=== PATIENT | male | born 1960 | race Caucasian/White ===

== ENCOUNTER 2018-11-19 07:41 | Emergency (ER) | payer OTHER ==
[~2018-11-19] VITALS: Ht 172.7 cm; Wt 63.5 kg
[~2018-11-19 07:41] MED LIST: ALBIPROI; ALBIPROI INH; ALBU3IS; ALBU3IS INH; ALBU90OI; ALBU90OI INH; ALBU90OI6 INH; ALBU90OI61 INH; AZIT500 PO; BUDE.5; CARV6.25 PO; CELE200 PO; CLOP75 PO; CLOT10; CLOT1TC TOP; CYCL10 PO; Cefdinir300 MG; DELTASONE20 MG PO; DOXY100 PO; FLUSAL1005; FLUSAL2505; FLUSAL2505 IH; FLUSAL5005 IH; FLUSAL5005 INH; FLUTICASONE-SA1 EAC5 INH; GUAI600T33 PO; HYDACE10B; HYDACE5 PO; LEVA.63IS; LEVFLO250 PO; LEVFLO500 PO; LEVO750 PO; LORA1 PO; METPRE4DP PO; MONT10T; MONT10T PO; NORT25 PO; Norco 10-325 T1 EACH PO; OMEP20ER PO; OTHER MEDICATIONS; OXYACE5T PO; PANT40 PO; PRAHYD1AE TOP; PRED10 PO; PRED20 PO; PROC10 PO; Prednisone20 MG PO; ROFL500T PO; RXCLIN PO; RXLORA1 PO; SULTRIDS PO; TIOT18; TIOT18 IH; TIOT18 PO; TRAZ50 PO; Ventolin Soln3 ML INH; ZOHYDRO ER30 MG PO; ZOHYDRO ER50 M1; ZOHYDRO ER50 M1 PO; ZOLM5; ZOLP10; ZOLP10 PO; Zofran Odt4 MG SL; [UNRECOGNIZED DRUG - OTHER] PO
== END 2018-11-19 08:44 | disposition home or self-care (01) ==
LOC: ER 07:41
DX: Z48.00 Encounter for change or removal of nonsurgical wound dressing (principal); G43.909 Migraine, unspecified, not intractable, without status migrainosus; K21.9 Gastro-esophageal reflux disease without esophagitis; J44.9 Chronic obstructive pulmonary disease, unspecified; Z87.891 Personal history of nicotine dependence
CPT/HCPCS: 99282

== ENCOUNTER 2019-06-13 11:42 | Day surgery (SDC) | payer OTHER ==
[~2019-06-13] VITALS: Ht 172.7 cm; Wt 85.1 kg
--- NOTE | 2019-06-13 13:32 | NUR ---
06/13/19 1332 [facility] NOTIFIED DR. ISABEL AND DR. ENGLAND THAT PATIENT STOPPED TAKING PLAVIX TWO WEEKS AGO. NO INTERVENTIONS AT THIS TIME. THIS RN DIRECTED PATIENT IN POST OP TEACHING, AT BEDSIDE, CALL LIGHT WITHIN REACH. DENIES NEEDS.
--- NOTE | 2019-06-13 18:48 | NUR ---
06/13/191847 Milagros Dean WENT OUT OF ROOM TO GET PT. SOME PAIN MEDICATION & FAMILY VERBALIZED THAT PT. WAS HAVING A SEIZURE. PT. BODY SHAKING, EYES CLOSED, EYES WATERING. CALLED PT.'S NAME & PT. LOOKED AT [facility] & THEN PT. C/O SOB. PT. HAS HIS O2 INTACT @2L/NC. [facility]DLB ENC. PT. TO COUGH & THEN HE FELT BETTER, NOT SOB. DR. PANIAGUA NOTIFIED. ALSO ENC. SLOW DEEP BREATHS. DR. PANIAGUA TALKING WITH & PT. DR. PANIAGUA ENC. PT. TO TAKE HIS HOME MEDS. PT. ALSO TOOK HIS INHALERS. VERBALIZES PT. HAS SEIZURE AT HOME & IS USUALLY AFTER HE EATS SOMETHING. PER PT.'S THEY ARE WAITING FOR A IN [place] TO FIND OUT ABOUT HIS SEIZURES.
--- NOTE | 2019-06-13 19:17 | NUR ---
06/13/191916 Milagros Dean 1747 PT. VERBALIZES NAUSEA GONE. 1753 PT. TAKEN TO SD. PT. VERBALIZES BEING THIRSTY. INSTRUCTED PT. THAT WE WOULD TAKE HIM OVER TO [place] & HE COULD HAVE SOMETHING TO DRINK.
== END 2019-06-13 19:23 | disposition home or self-care (01) ==
LOC: ORSCSDS 11:42
PROVIDERS: Podiatrist
PROC: 0STQ0ZZ Resection of Left Toe Phalangeal Joint, Open Approach (ICD-10-PCS; principal; 2019-06-13 13:30)
PROC: 0JBR0ZZ Excision of Left Foot Subcutaneous Tissue and Fascia, Open Approach (ICD-10-PCS; principal; 2019-06-13 13:30)
PROC: 0SGQ04Z Fusion of Left Toe Phalangeal Joint with Internal Fixation Device, Open Approach (ICD-10-PCS; principal; 2019-06-13 13:30)
DX: M71.372 Other bursal cyst, left ankle and foot (principal); M20.42 Other hammer toe(s) (acquired), left foot; M15.9 Polyosteoarthritis, unspecified; I10 Essential (primary) hypertension; Z87.891 Personal history of nicotine dependence; R73.03 Prediabetes
CPT/HCPCS: 82947; 88304; 88305; 88311; J0690; J2001; J2250; J2405; J3010; J7120

== ENCOUNTER 2019-12-12 13:42 | Day surgery (SDC) | payer OTHER ==
[~2019-12-12] VITALS: Ht 170.2 cm; Wt 83.3 kg
[~2019-12-12 13:42] MED LIST changes: +ALBU2.5V5 INH; +FLUT1DIS8 INH; +TIOT18 INH
--- NOTE | 2019-12-12 16:04 | NUR ---
12/12/19 1604 Sabina Miller PATIENT C/O PAIM 02/16 HOWEVER, PATIENT IS SITTING IN RECLINER, APPEARS COMFORTABLE, IS TALKING NONSTOP AND EATING COOKIES. WILL MEDICATED PER MD ORDER
== END 2019-12-12 16:31 | disposition home or self-care (01) ==
LOC: ORSCSDS 13:42
PROVIDERS: Podiatrist
PROC: 0Y6S0Z0 Detachment at Left 2nd Toe, Complete, Open Approach (ICD-10-PCS; principal; 2019-12-12 15:00)
DX: M24.576 Contracture, unspecified foot (principal); M20.42 Other hammer toe(s) (acquired), left foot; E78.5 Hyperlipidemia, unspecified; J44.9 Chronic obstructive pulmonary disease, unspecified; Z99.81 Dependence on supplemental oxygen; I25.2 Old myocardial infarction; G40.909 Epilepsy, unspecified, not intractable, without status epilepticus; Z79.899 Other long term (current) drug therapy
CPT/HCPCS: J0690; J1100; J2250; J2405; J2704; J3010; J7120

== ENCOUNTER → 2021-01-03 | Outpatient (CLI) | payer OTHER ==
[2021-01-18 14:05] LABS: Stool Occult Bld Immuno 1 Negative (NEGATIVE)
== END | disposition home or self-care (01) ==
LOC: LAB SHORT 11:25 → LAB FUT 12-24 14:40
PROVIDERS: Physician Assistant
DX: Z12.11 Encounter for screening for malignant neoplasm of colon (principal)
CPT/HCPCS: 82274

== ENCOUNTER → 2022-05-17 | Outpatient (CLI) | payer OTHER ==
[2022-05-18 14:39] LABS: Stool Occult Bld Immuno 1 Negative (NEGATIVE)
== END | disposition home or self-care (01) ==
LOC: LAB SHORT 12:00 → LAB 12:00
PROVIDERS: Physician Assistant
DX: Z12.11 Encounter for screening for malignant neoplasm of colon (principal)
CPT/HCPCS: G0328

== ENCOUNTER 2024-07-11 05:35 | Day surgery (SDC) | payer OTHER ==
[2024-07-11] VITALS (11 sets, daily range): BP systolic 126–140; BP diastolic 86–106
[~2024-07-11] VITALS: Ht 172.7 cm; Wt 63.0 kg
[~2024-07-11 05:35] MED LIST changes: +ATOR10 PO; +Flonase 0.05% N16 GM; +LISI5 PO; +NYSTATIN100000 U10 MT; +TRELEGY ELLIPT1 EACH INH
[2024-07-11] MEDS ORDERED: CeFAZolin Sodium 2,000 MG in NS 100 ML IV SCH (06:15)
[2024-07-11] MEDS ORDERED: Lactated Ringer's 1,000 ML IV SCH (06:15)
[2024-07-11] MEDS ORDERED: Bupivacaine 0.5% HCl 5 MG/ML 30MLVIAL ONE (06:55)
[2024-07-11] MEDS ORDERED: CeFAZolin Sodium 2,000 MG VIAL ONE (06:58)
[2024-07-11] MEDS ORDERED: FentaNYL Citrate 50 MCG/ML 2 ML Injection ONE (07:28)
[2024-07-11] MEDS ORDERED: Etomidate 2MG / ML 10ML Vial ONE (07:30)
--- NOTE | 2024-07-11 07:32 | NUR ---
History, Chart, Medications and Allergies reviewed before start of procedure. Patient confirms NPO status and agrees with scheduled surgery. Pre-Op teaching done. Pt verbalizes understanding. Patient reports completing Chlorhexadine shower X2 prior to admission to hospital. Pt is o2 dependent wearing 2l nc. lungs noted to have exp wheezes and diminished bases. Pt glasses and dentures removed and placed in pacu. pt with bilateral hearing aides, back to [place] with them and denture cup given to Nubia hannah with instructions regarding his hearing aides.
[2024-07-11] MEDS ORDERED: Rocuronium Bromide 10 MG/ML 5ML Injection IV ONE (07:33)
[2024-07-11] MEDS ORDERED: Phenylephrine HCl 10mg/ml 1 ml Vial ONE (07:38)
[2024-07-11] MEDS ORDERED: Labetalol HCL 5 MG/ML 4ML Injection (Single Dose) ONE (07:56)
[2024-07-11] MEDS ORDERED: Dexamethasone Sod Phos 10 MG/ML 1ML VIAL ONE (08:17)
[2024-07-11] MEDS ORDERED: SuccINYLCHOLINE Chloride 100 MG/5 ML 5MLSYR ONE (08:17)
[2024-07-11] MEDS ORDERED: Lidocaine HCl 2% 20 ML MDV ONE (08:17)
[2024-07-11] MEDS ORDERED: Ondansetron HCl 2 MG / ML 2ML Vial ONE (08:17)
[2024-07-11] MEDS ORDERED: Sugammadex Sodium 200 MG/2ML SDV (100 MG/ML) ONE (08:18)
[2024-07-11] MEDS ORDERED: Ketorolac Tromethamine 30mg Vial ONE (08:20)
[2024-07-11] MEDS ORDERED: Ipratropium/Albuterol SulF 2.5-0.5MG/3 ML Amp ONE (08:36)
[2024-07-11] MEDS ORDERED: OxyCODONE HCL 5 MG TAB PO PRN (08:50)
[2024-07-11] MEDS ORDERED: HYDROmorphone HCl/Pf 1MG SYR ONE (09:11)
--- NOTE | 2024-07-11 10:13 | NUR ---
Discharge instructions reviewed with patient. Patient verbalizes understanding. Copy given to patient to take home. Abd binder in place for comfort, dressings c/d/i. Patient States Post-Procedure ride home has been arranged. Discharged via wheelchair to private car for ride home.
== END 2024-07-11 10:14 | disposition home or self-care (01) ==
LOC: ORSCMMR 05:35 → ORD 07:30 → ORSCMMR 07:30
PROVIDERS: Surgery
PROC: 0WUF4JZ Supplement Abdominal Wall with Synthetic Substitute, Percutaneous Endoscopic Approach (ICD-10-PCS; principal; 2024-07-11 07:30)
PROC: 3E0T3BZ Introduction of Anesthetic Agent into Peripheral Nerves and Plexi, Percutaneous Approach (ICD-10-PCS; principal; 2024-07-11 07:30)
DX: K42.0 Umbilical hernia with obstruction, without gangrene (principal); K66.0 Peritoneal adhesions (postprocedural) (postinfection); I10 Essential (primary) hypertension; J44.89 Other specified chronic obstructive pulmonary disease; K21.9 Gastro-esophageal reflux disease without esophagitis; E78.5 Hyperlipidemia, unspecified; Z86.73 Personal history of transient ischemic attack (TIA), and cerebral infarction without residual deficits; F17.210 Nicotine dependence, cigarettes, uncomplicated; G40.909 Epilepsy, unspecified, not intractable, without status epilepticus; Z79.899 Other long term (current) drug therapy
CPT/HCPCS: 82947; 88302; A9270; C1781; J0330; J0690; J1100; J1171; J1885; J2371; J2405; J3010; J7120